=== PATIENT | male | born 1985 | race Caucasian/White ===

== ENCOUNTER 2018-10-14 21:30 | Emergency (ER) | payer SELFPAY ==
[~2018-10-14] VITALS: Ht 170.2 cm; Wt 63.0 kg
[2018-10-14] MEDS ORDERED: ALPRAZOLAM 1 MG TAB PO ONE (21:45)
[2018-10-14] MEDS ORDERED: ALPRAZOLAM 0.25 MG TAB ONE (21:49)
--- NOTE | 2018-10-14 22:24 | Diagnostic Imaging Report ---
History: Slip, hit the head Comparison studies: None Technique: Axial images were obtained from the skull base to the vertex. Coronal and sagittal reconstructions obtained from the axial data. Dose modulation, iterative reconstruction, and/or weight based adjustment of the mA/kV was utilized to reduce the radiation dose to as low as reasonably achievable. Findings: Scalp/skull: Small central frontal scalp hematoma. No fractures, blastic or lytic lesions. Extra-axial spaces: No masses. No fluid collections. Brain sulci: Appropriate for age. Ventricles: Normal in size and configuration. No hydrocephalus. Parenchyma: No abnormal densities. No masses, hemorrhage, acute or chronic cortical vascular insults. Sellar/suprasellar region: No abnormalities Craniocervical junction: Patent foramen magnum. No Chiari one malformation. IMPRESSION: No intracranial abnormalities . Small central frontal scalp hematoma Signed by: DR Frankie Jenkins M.D. on 10/14/2018 10:20 PM
== END 2018-10-14 23:05 | disposition home or self-care (01) ==
LOC: FSED 21:30
DX: S00.03XA Contusion of scalp, initial encounter (principal); S00.81XA Abrasion of other part of head, initial encounter; F41.1 Generalized anxiety disorder
CPT/HCPCS: 70450; 99283